=== PATIENT | female | born 1955 | race Caucasian/White ===

== ENCOUNTER 2022-03-20 16:23 | Emergency (ER) | payer MEDICARE, OTHER ==
[2022-03-20] MEDS ORDERED: Sodium Chloride 0.9% 1000 ML 1,000 ML IV STA ×2 (16:38→18:02)
[2022-03-20] MEDS ORDERED: Pepcid 20 MG VIAL IV ONE ×2 (16:38→16:41)
[2022-03-20] MEDS ORDERED: Sodium Chloride 0.9% 1000 ML 1,000 ML ONE ×3 (16:41→21:46)
--- NOTE | 2022-03-20 16:44 | ERPHSYRPT ---
- History of Present Illness Time Seen by Provider: 03/20/22 16:35 Historian: patient Exam Limitations: no limitations Patient Subjective Stated Complaint: Right upper abdominal pain Physician History: Patient's had intermittent right upper quadrant abdominal pain over the last 1 day intermittently, worse after eating. On her way over to the hospital, she had a bout of substernal chest pain/epigastric abdominal pain that resolved on its own. She states her bout of right upper quad abdominal pain lasted about 5 to 10 minutes after eating with radiation into her ribs. She has not had any imaging of her gallbladder or any testing of her gallbladder as she still has her gallbladder. Timing/Duration: yesterday, intermittent Activities at Onset: other (Eating) Quality: cramping, stabbing Abdominal Pain Onset Location: RUQ Pain Radiation: chest Severity of Pain-Max: severe Severity of Pain-Current: none Modifying Factors: Worsens With: eating Associated Symptoms: chest pain, No back, No diaphoresis, No diarrhea, No fever/chills, No fatigue, No headache, No nausea, No neck pain, No rash, No shortness of breath, No syncope, No vomiting, No weakness Previous symptoms: same symptoms as today, no recent treatment Allergies/Adverse Reactions: No Known Drug Allergies Allergy (Unverified 03/20/22 16:30) - Review of Systems Constitutional: No Fever, No Chills, No Fatigue, No Malaise Eyes: No Symptoms, No Eye Pain, No Eye Redness, No Other (Negative icterus) Ears, Nose, & Throat: No Symptoms, No Ear Pain, No Ear Discharge, No Nose Congestion, No Epistaxis, No Throat Pain Respiratory: No Cough, No Dyspnea Cardiac: Chest Pain, No Edema, No Syncope Abdominal/Gastrointestinal: Abdominal Pain, No Nausea, No Vomiting, No Diarrhea Genitourinary Symptoms: No Dysuria, No Hematuria, No Flank Pain Musculoskeletal: No Back Pain, No Neck Pain Skin: No Rash Neurological: No Dizziness, No Focal Weakness, No Sensory Changes Psychological: No Symptoms, No Alcohol Abuse, No Anxiety Endocrine: No Symptoms, No Polydipsia Hematologic/Lymphatic: No Easy Bleeding, No Easy Bruising All Other Systems: Reviewed and Negative - Past Medical History Neurological History: No Pertinent History Cardiac History: Hypertension Respiratory History: No Pertinent History Endocrine Medical History: Diabetes Type II Musculoskeletal History: Other Other Medical History: SX HX - TRIGGER FINGER RELEASE RIGHT, BILATERAL FOOT SURGERY FOR PLANTAR FASCITIS - Nursing Vital Signs Nursing Vital Signs: Initial Vital Signs Temperature 97.4 F 03/20/22 16:31 Pulse Rate 91 H 03/20/22 16:31 Respiratory Rate 19 03/20/22 16:31 Blood Pressure 161/102 03/20/22 16:31 O2 Sat by Pulse Oximetry 96 03/20/22 16:31 Pain Scale Pain Intensity 2 - Physical Exam General Appearance: no apparent distress, alert Eye Exam: PERRL/EOMI, eyes nml inspection, No scleral icterus, No pale conjunctivae Ears, Nose, Throat Exam: normal ENT inspection, pharynx normal, moist mucous membranes Neck Exam: normal inspection, non-tender, supple, full range of motion Respiratory Exam: normal breath sounds, lungs clear, No respiratory distress Cardiovascular Exam: regular rate/rhythm, normal heart sounds Gastrointestinal/Abdomen Exam: soft, normal bowel sounds, No tenderness, No distention, No mass, No guarding Back Exam: normal inspection, normal range of motion, No CVA tenderness, No vertebral tenderness Extremity Exam: normal inspection, normal range of motion, pelvis stable Neurologic Exam: alert, oriented x 3, cooperative, president & ceo II-XII nml as tested, normal mood/affect, sensation nml, No motor deficits Skin Exam: normal color, warm, dry, No rash, No petechiae, No jaundice SpO2 Interpretation: normal O2 Delivery: Room Air - Course Nursing assessment & vital signs reviewed: Yes EKG Interpreted by Me: RATE (78), Sinus Rhythm, NORMAL AXIS, NORMAL INTERVALS, NORMAL QRS, NORMAL ST-T, Other (Low voltage inprecordial leads) - Radiology Exams Chest X-ray Interpretation: Reviewed by me, Discussed w/ radiologist, No Pneumonia, No Pneumothorax, Nml Alignment, Nml Heart Size, No Infiltrates, Nml Mediastinum, Other (Right lower lobe atelectasis) - CT Exams Abdomen/Pelvis CT Interpretation: Discussed w/radiologist, Other (Compared to 05/13/2019, new distended gallbladder with wall thickening and enhancement favoring acalculus cholecystitis. Stable fatty liver and bilateral renal cysts are stable per radiology interpretation) Ordered Tests: Active Orders 24 hr Category Date Time Status EKG-ER Only STAT Care 03/20/22 16:38 Active IV Insertion STAT Care 03/20/22 16:38 Active NPO (ED) STAT Care 03/20/22 16:38 Active ABDOMEN AND PELVIS W CONTRAST [CT] Stat Exams 03/20/22 18:57 Taken CHEST 1 VIEW (PORTABLE) Stat Exams 03/20/22 16:38 Completed CBC W DIFF Stat Lab 03/20/22 16:35 Completed CMP Stat Lab 03/20/22 16:35 Completed LIPASE Stat Lab 03/20/22 16:35 Completed PROTIME WITH INR Stat Lab 03/20/22 16:35 Completed TROPONIN Q3H Lab 03/20/22 16:35 Completed TROPONIN Q3H Lab 03/20/22 19:30 Completed TROPONIN Q3H Lab 03/20/22 22:45 Ordered TROPONIN Q3H Lab 03/21/22 01:45 Ordered TROPONIN Q3H Lab 03/21/22 04:45 Ordered UA W/RFX CULTURE Stat Lab 03/20/22 16:49 Completed Medication Summary Generic Name Dose Route Start Last Admin Trade Name Freq PRN Reason Stop Dose Admin Sodium Chloride 1,000 mls @ 200 mls/hr 03/20/22 20:45 03/20/22 21:48 Sodium Chloride 0.9% 1000 Ml IV 04/19/22 20:44 200 mls/hr .Q5H JONATHAN Administration Discontinued Medications Generic Name Dose Route Start Last Admin Trade Name Freq PRN Reason Stop Dose Admin Famotidine 20 mg 03/20/22 16:38 03/20/22 16:42 Famotidine 20 Mg/1 Vial IV 03/20/22 16:39 20 mg STAT ONE Administration Famotidine Confirm 03/20/22 16:41 Famotidine 20 Mg/1 Vial Administered 03/20/22 16:42 Dose 20 mg IV .STK-MED ONE Hydromorphone HCl 1 mg 03/20/22 19:58 03/20/22 20:14 Hydromorphone 1 Mg/1ml Inj 1 Mg/Ml Syringe IV 03/20/22 19:59 1 mg STAT ONE Administration Hydromorphone HCl Confirm 03/20/22 20:10 Hydromorphone 1 Mg/1ml Inj 1 Mg/Ml Syringe Administered 03/20/22 20:11 Dose 1 mg .ROUTE .STK-MED ONE Sodium Chloride 1,000 mls @ 999 mls/hr 03/20/22 16:38 03/20/22 17:45 Sodium Chloride 0.9% 1000 Ml IV 03/20/22 17:38 Infused .Q1H1M STA Infusion Sodium Chloride Confirm 03/20/22 16:41 Sodium Chloride 0.9% 1000 Ml Administered 03/20/22 16:42 Dose 1,000 mls @ ud .ROUTE .STK-MED ONE Sodium Chloride 1,000 mls @ 999 mls/hr 03/20/22 18:02 03/20/22 19:19 Sodium Chloride 0.9% 1000 Ml IV 03/20/22 19:02 Infused .Q1H1M STA Infusion Sodium Chloride Confirm 03/20/22 18:15 Sodium Chloride 0.9% 1000 Ml Administered 03/20/22 18:16 Dose 1,000 mls @ ud .ROUTE .STK-MED ONE Piperacillin Sod/Tazobactam 100 mls @ 200 mls/hr 03/20/22 20:33 03/20/22 20:36 Sod 3.375 gm/ Sodium Chloride IV 03/20/22 21:02 200 mls/hr STAT ONE Administration Sodium Chloride Confirm 03/20/22 20:35 Sodium Chloride 100ml Mini-Bag Plus Administered 03/20/22 20:36 Dose 100 mls @ ud IV .STK-MED ONE Piperacillin Sod/Tazobactam Sod Confirm 03/20/22 20:35 Piperacillin/Tazobactam Sodium 3.375 Gm Vial Administered 03/20/22 20:36 Dose 3.375 gm IV .STK-MED ONE Lab/Rad Data: Laboratory Result Diagrams 03/20/22 16:35 03/20/22 16:35 Laboratory Results 03/20/22 03/20/22 03/20/22 Range/Units 19:30 18:30 16:49 WBC (4.0-10.5) x10^3/uL RBC (4.1-5.4) x10^6/uL Hgb (12.0-16.0) g/dL Hct (35-47) % MCV (78-100) fL MCH (26-32) pg MCHC (32-36) g/dL RDW (11.5-14.0) % Plt Count (150-450) x10^3/uL MPV (7.5-11.0) fL Gran % (36.0-66.0) % Immature Gran % (Auto) (0.00-0.4) % Nucleat RBC Rel Count (0.00-0.1) % Eos # (Auto) (0-0.5) x10^3/uL Immature Gran # (Auto) (0.00-0.03) x10^3u/L Absolute Lymphs (auto) (1.0-4.6) x10^3/uL Absolute Monos (auto) (0.0-1.3) x10^3/uL Absolute Nucleated RBC (0.00-0.01) x10^3u/L Lymphocytes % (24.0-44.0) % Monocytes % (0.0-12.0) % Eosinophils % (0.00-5.0) % Basophils % (0.0-0.4) % Absolute Granulocytes (1.4-6.9) x10^3/uL Basophils # (0-0.4) x10^3/uL PT (9.4-12.5) SECONDS INR (0.8-3.0) Sodium (137-145) mmol/L Potassium (3.5-5.1) mmol/L Chloride (98-107) mmol/L Carbon Dioxide (22-30) mmol/L Anion Gap (5-15) MEQ/L BUN (7-17) mg/dL Creatinine (0.52-1.04) mg/dL Estimated GFR ML/MIN Glucose (74-106) mg/dL Calcium (8.4-10.2) mg/dL Total Bilirubin (0.2-1.3) mg/dL AST (14-36) U/L ALT (0-35) U/L Alkaline Phosphatase (38-126) U/L Troponin I < 0.012 (0.000-0.034) ng/mL Serum Total Protein (6.3-8.2) g/dL Albumin (3.5-5.0) g/dL Lipase (23-300) U/L Urinalys Dipstick Clnc MAIN LAB Urine Color YELLOW (YELLOW) Urine Appearance CLEAR (CLEAR) Urine pH 8.5 (5-6) Ur Specific [place] 1.020 (1.005-1.025) POC Urine Protein Conf 30 (Negative) Urine Ketones NEGATIVE (NEGATIVE) Urine Nitrite NEGATIVE (NEGATIVE) Urine Bilirubin NEGATIVE (NEGATIVE) Urine Urobilinogen 1 (0-1) mg/dL Urine Leukocytes NEGATIVE (NEGATIVE) Urine WBC (Auto) NONE (0-5) /HPF Urine RBC (Auto) 3-5 (0-2) /HPF U Epithel Cells (Auto) NONE (FEW) /HPF Urine Bacteria (Auto) NONE (NEGATIVE) /HPF Urine RBC NEGATIVE (0-5) Kvng/ul Ur Culture Indicated? NO Urine Glucose NEGATIVE (NEGATIVE) mg/dL Influenza Type A Ag NEGATIVE (NEGATIVE) Influenza Type B Ag NEGATIVE (NEGATIVE) RSV (PCR) NEGATIVE (Negative) SARS-CoV-2 (PCR) NEGATIVE (NEGATIVE) 03/20/22 03/20/22 03/20/22 Range/Units 16:35 16:35 16:35 WBC (4.0-10.5) x10^3/uL RBC (4.1-5.4) x10^6/uL Hgb (12.0-16.0) g/dL Hct (35-47) % MCV (78-100) fL MCH (26-32) pg MCHC (32-36) g/dL RDW (11.5-14.0) % Plt Count (150-450) x10^3/uL MPV (7.5-11.0) fL Gran % (36.0-66.0) % Immature Gran % (Auto) (0.00-0.4) % Nucleat RBC Rel Count (0.00-0.1) % Eos # (Auto) (0-0.5) x10^3/uL Immature Gran # (Auto) (0.00-0.03) x10^3u/L Absolute Lymphs (auto) (1.0-4.6) x10^3/uL Absolute Monos (auto) (0.0-1.3) x10^3/uL Absolute Nucleated RBC (0.00-0.01) x10^3u/L Lymphocytes % (24.0-44.0) % Monocytes % (0.0-12.0) % Eosinophils % (0.00-5.0) % Basophils % (0.0-0.4) % Absolute Granulocytes (1.4-6.9) x10^3/uL Basophils # (0-0.4) x10^3/uL PT 10.7 (9.4-12.5) SECONDS INR 1.01 (0.8-3.0) Sodium 138 (137-145) mmol/L Potassium 4.1 (3.5-5.1) mmol/L Chloride 105 (98-107) mmol/L Carbon Dioxide 24 (22-30) mmol/L Anion Gap 13.3 (5-15) MEQ/L BUN 19 H (7-17) mg/dL Creatinine 0.75 (0.52-1.04) mg/dL Estimated GFR > 60.0 ML/MIN Glucose 182 H (74-106) mg/dL Calcium 9.6 (8.4-10.2) mg/dL Total Bilirubin 1.10 (0.2-1.3) mg/dL AST 134 H (14-36) U/L ALT 48 H (0-35) U/L Alkaline Phosphatase 139 H (38-126) U/L Troponin I < 0.012 (0.000-0.034) ng/mL Serum Total Protein 7.3 (6.3-8.2) g/dL Albumin 4.0 (3.5-5.0) g/dL Lipase 87550 H (23-300) U/L Urinalys Dipstick Clnc Urine Color (YELLOW) Urine Appearance (CLEAR) Urine pH (5-6) Ur Specific [place] (1.005-1.025) POC Urine Protein Conf (Negative) Urine Ketones (NEGATIVE) Urine Nitrite (NEGATIVE) Urine Bilirubin (NEGATIVE) Urine Urobilinogen (0-1) mg/dL Urine Leukocytes (NEGATIVE) Urine WBC (Auto) (0-5) /HPF Urine RBC (Auto) (0-2) /HPF U Epithel Cells (Auto) (FEW) /HPF Urine Bacteria (Auto) (NEGATIVE) /HPF Urine RBC (0-5) Kvng/ul Ur Culture Indicated? Urine Glucose (NEGATIVE) mg/dL Influenza Type A Ag (NEGATIVE) Influenza Type B Ag (NEGATIVE) RSV (PCR) (Negative) SARS-CoV-2 (PCR) (NEGATIVE) 03/20/22 Range/Units 16:35 WBC 9.5 (4.0-10.5) x10^3/uL RBC 5.08 (4.1-5.4) x10^6/uL Hgb 15.5 (12.0-16.0) g/dL Hct 48.0 H (35-47) % MCV 94.5 (78-100) fL MCH 30.5 (26-32) pg MCHC 32.3 (32-36) g/dL RDW 12.8 (11.5-14.0) % Plt Count 221 (150-450) x10^3/uL MPV 9.4 (7.5-11.0) fL Gran % 50.9 (36.0-66.0) % Immature Gran % (Auto) 0.3 (0.00-0.4) % Nucleat RBC Rel Count 0.0 (0.00-0.1) % Eos # (Auto) 0.23 (0-0.5) x10^3/uL Immature Gran # (Auto) 0.03 (0.00-0.03) x10^3u/L Absolute Lymphs (auto) 3.50 (1.0-4.6) x10^3/uL Absolute Monos (auto) 0.83 (0.0-1.3) x10^3/uL Absolute Nucleated RBC 0.00 (0.00-0.01) x10^3u/L Lymphocytes % 37.0 (24.0-44.0) % Monocytes % 8.8 (0.0-12.0) % Eosinophils % 2.4 (0.00-5.0) % Basophils % 0.6 (0.0-0.4) % Absolute Granulocytes 4.82 (1.4-6.9) x10^3/uL Basophils # 0.06 (0-0.4) x10^3/uL PT (9.4-12.5) SECONDS INR (0.8-3.0) Sodium (137-145) mmol/L Potassium (3.5-5.1) mmol/L Chloride (98-107) mmol/L Carbon Dioxide (22-30) mmol/L Anion Gap (5-15) MEQ/L BUN (7-17) mg/dL Creatinine (0.52-1.04) mg/dL Estimated GFR ML/MIN Glucose (74-106) mg/dL Calcium (8.4-10.2) mg/dL Total Bilirubin (0.2-1.3) mg/dL AST (14-36) U/L ALT (0-35) U/L Alkaline Phosphatase (38-126) U/L Troponin I (0.000-0.034) ng/mL Serum Total Protein (6.3-8.2) g/dL Albumin (3.5-5.0) g/dL Lipase (23-300) U/L Urinalys Dipstick Clnc Urine Color (YELLOW) Urine Appearance (CLEAR) Urine pH (5-6) Ur Specific [place] (1.005-1.025) POC Urine Protein Conf (Negative) Urine Ketones (NEGATIVE) Urine Nitrite (NEGATIVE) Urine Bilirubin (NEGATIVE) Urine Urobilinogen (0-1) mg/dL Urine Leukocytes (NEGATIVE) Urine WBC (Auto) (0-5) /HPF Urine RBC (Auto) (0-2) /HPF U Epithel Cells (Auto) (FEW) /HPF Urine Bacteria (Auto) (NEGATIVE) /HPF Urine RBC (0-5) Kvng/ul Ur Culture Indicated? Urine Glucose (NEGATIVE) mg/dL Influenza Type A Ag (NEGATIVE) Influenza Type B Ag (NEGATIVE) RSV (PCR) (Negative) SARS-CoV-2 (PCR) (NEGATIVE) - Progress Progress: improved Progress Note: 03/20/22 20:41 Patient's pain is well controlled and she has no issues with chest pain, dyspnea, back pain or any location of abdominal pain at this time. Reviewed with her and her family the results of CT scan labs and that she will need tr melvi and at this time [facility] is on diversion and so [facility] will be the most likely transfer location. Patient will require transfer as I discussed the patient earlier with the hospitalist at [facility] and due to limited resources here as well as no gastroenterology coverage, the hospitalist recommended transfer the patient to a larger facility in [place], [place]. Patient was started on Zosyn for intra-abdominal coverage for the acalculous cholecystitis seen and will have Dilaudid and Zofran ordered for as needed medicine as well as maintenance fluids through the IV since he received 2 L bolus and has maintained hemodynamically in good condition during her time here in the emergency department. 03/20/22 22:26 Patient has maintained being hemodynamically good condition and pain is well controlled and will be transferred to [facility] in [place], [place] Discussed with Dr.: Rojas (At 18:40 on 03/20/2022, discussed the patient with Dr. Clifton, hospitalist for the patient who states that patient should be transferred to facility with gastroenterology and higher level of coverage with the elevated lipase), Other (@21:25 on 03/20/2022, patient was discussed with Dr Jang, surgeon at [facility] in [place], [place] and reviewed the patient's lab and CT scan results. Dr Jang states patient is to be admitted to the hospitalist since no visible gallstones; @21:31, discussed with Dr Ji, hospitalist) Will see patient in: hospital (full admit) (patient was accepted by gilberto Carlisle ospitalist, at [facility] in [place], [place] at 22:25 on 03/20/2022) Counseled pt/family regarding: lab results, diagnosis, need for follow-up, rad results - Departure Departure Disposition: Transfer ([facility] in [place], [place]) Clinical Impression: Acute cholecystitis, Acute pancreatitis without infection or necrosis, Fatty liver, Bilateral renal cysts, Essential hypertension Condition: Fair Critical Care Time: No Referrals: TITO BREWSTER, C[employer] ASSEMBLER [Primary Care Provider] - Follow up/PCP as directed
[2022-03-20 17:04] LABS: Absolute Neutrophil Ct (ANC) 4.82 x10^3/uL (1.4-6.9); Basophil (Absolute #) 0.06 x10^3/uL (0-0.4); Eosinophil % 2.4 % (0.00-5.0); Eosinophil (Absolute #) 0.23 x10^3/uL (0-0.5); Hemoglobin 15.5 g/dL (12.0-16.0); Mean Cell Volume 94.5 fL (78-100); Mean Corpuscular Hemoglobin 30.5 pg (26-32); Mean Corpuscular Hgb Concent. 32.3 g/dL (32-36); Mean Platelet Volume 9.4 fL (7.5-11.0); Monocyte (Absolute #) 0.83 x10^3/uL (0.0-1.3); Monocytes % 8.8 % (0.0-12.0); Neutrophil % 50.9 % (36.0-66.0); Platelet Count 221 x10^3/uL (150-450); Red Blood Count 5.08 x10^6/uL (4.1-5.4); Red Cell Distribution Width 12.8 % (11.5-14.0); White Blood Count 9.5 x10^3/uL (4.0-10.5)
--- NOTE | 2022-03-20 17:08 | XRAY ---
Indication: Chest pain. Comparison: September 24, 2016. Portable chest demonstrates new minimal right infrahilar discoid atelectasis/scarring. Remaining lungs clear again with incidental tiny calcified granulomas. Heart not enlarged. Bony thorax intact again with osteopenia and degenerative changes. Impression: Nonacute chest with chronic features.
[2022-03-20 17:12] LABS: ALKALINE PHOSPHATASE 139 U/L (38-126); ANION GAP 13.3 MEQ/L (5-15); BLOOD UREA NITROGEN 19 mg/dL (7-17); CHLORIDE 105 mmol/L (98-107); Calcium 9.6 mg/dL (8.4-10.2); Carbon Dioxide 24 mmol/L (22-30); Creatinine 1 0.75 mg/dL (0.52-1.04); EST GLOMERULAR FILTRATION RATE > 60.0 ML/MIN; Glucose 182 mg/dL (74-106); Potassium 4.1 mmol/L (3.5-5.1); SGOT/AST 134 U/L (14-36); SGPT/ALT 48 U/L (0-35); SODIUM 138 mmol/L (137-145); Total Protein 7.3 g/dL (6.3-8.2)
[2022-03-20 17:14] LABS: INR 1.01 (0.8-3.0); PROTIME 10.7 SECONDS (9.4-12.5)
[2022-03-20 17:29] LABS: Appearance CLEAR (CLEAR); Bilirubin NEGATIVE (NEGATIVE); Dipstick done @ ? MAIN LAB; Glucose NEGATIVE (NEGATIVE); Ketones NEGATIVE (NEGATIVE); Nitrite NEGATIVE (NEGATIVE); Ph 8.5 (5-6); Protein,Urine Dip 30 (Negative); RBC NEGATIVE Ery/ul (0-5); Urobilinogen 1 mg/dL (0-1)
[2022-03-20 17:30] LABS: Urine Cultured Indicated? NO
[2022-03-20 17:56] LABS: LIPASE 19177 U/L (23-300)
[2022-03-20 19:38] LABS: INFLUENZA A NEGATIVE (NEGATIVE); INFLUENZA B NEGATIVE (NEGATIVE); RESPIRATORY SYNCTIAL VIRUS NEGATIVE (Negative); SARS-CoV-2 Xpert Express NEGATIVE (NEGATIVE)
[2022-03-20] MEDS ORDERED: Hydromorphone 1 mg/ml Injection IV ONE (19:58)
[2022-03-20] MEDS ORDERED: Hydromorphone 1 mg/ml Injection ONE (20:10)
[2022-03-20] MEDS ORDERED: PIPERACILLIN/TAZOBACTAM 3.375 GM in Sodium Chloride 100ML MINI-BAG PLUS 100 ML IV ONE (20:33)
[2022-03-20] MEDS ORDERED: PIPERACILLIN/TAZOBACTAM IV ONE (20:35)
[2022-03-20] MEDS ORDERED: Sodium Chloride 100ML MINI-BAG PLUS 100 ML IV ONE (20:35)
[2022-03-20] MEDS ORDERED: Sodium Chloride 0.9% 1000 ML 1,000 ML IV SCH (20:45)
[2022-03-21] MEDS ORDERED: Hydromorphone 1 mg/ml Injection IV PRN (00:47)
[2022-03-21] MEDS ORDERED: Zofran 4 MG/2 ML VIAL IV PRN (00:47)
[2022-03-21] MEDS ORDERED: PIPERACILLIN/TAZOBACTAM 3.375 GM in Sodium Chloride 100ML MINI-BAG PLUS 100 ML IV SCH (01:00)
[2022-03-21] MEDS ORDERED: Zofran 4 MG/2 ML VIAL ONE (01:13)
[2022-03-21] MEDS ORDERED: Hydromorphone 1 mg/ml Injection ONE (01:14)
[2022-03-21] MEDS ORDERED: Pepcid 20 MG VIAL IV ONE (01:15)
[2022-03-21] MEDS ORDERED: PIPERACILLIN/TAZOBACTAM IV ONE (01:15)
[2022-03-21] MEDS ORDERED: Sodium Chloride 100ML MINI-BAG PLUS 100 ML IV ONE (01:16)
[2022-03-21 02:05] VITALS: BP 125/75; PULSE 103; O2SAT 99
--- NOTE | 2022-03-21 08:50 | XRAY ---
Indication: Right upper quadrant/epigastric pain 2 days. Nausea and vomiting. Multiple contiguous assessment images obtained through the abdomen and pelvis using 80 cc Isovue 370 contrast. Comparison: CT abdomen May 13, 2019. Lung bases again demonstrates tiny calcified granulomas. No infiltrate or effusion. Heart not enlarged. Noncontrasted stomach and bowel loops nonobstructed. Appendix not identified. Minimal sigmoid diverticulosis without diverticulitis. Gallbladder is now abnormally distended with mild wall thickening/enhancement and pericholecystic fluid favoring acalculus cholecystitis. No abnormal biliary distention. Again mild fatty hepatomegaly measuring 22.3 cm and bilateral renal cysts. Remaining liver, gallbladder, pancreas, spleen, adrenal glands, kidneys, ureters, bladder, and uterus appear unremarkable. Mild scattered aortoiliac calcifications. No AAA or pathologic retroperitoneal lymphadenopathy. Osseous structures intact again with mild degenerative changes throughout the spine. Impression: 1. New finding for abnormal distended gallbladder with wall thickening/enhancement and pericholecystic fluid favoring acalculus cholecystitis. 2. Chronic findings including fatty hepatomegaly, bilateral renal cysts, chronic bony findings, and old granulomatous disease.
[2022-03-21] MEDS ORDERED: Pepcid 20 MG VIAL IV SCH (10:00)
== END 2022-03-21 02:06 | disposition short-term general hospital (02) ==
LOC: ED 16:23
DX: K81.0 Acute cholecystitis (principal); K85.90 Acute pancreatitis without necrosis or infection, unspecified; K76.0 Fatty (change of) liver, not elsewhere classified; Q61.02 Congenital multiple renal cysts; I10 Essential (primary) hypertension; R10.11 Right upper quadrant pain; R07.9 Chest pain, unspecified; E11.9 Type 2 diabetes mellitus without complications
CPT/HCPCS: 0241U; 36000; 36415; 71045; 74177; 80053; 81015; 83690; 84484; 85025; 85610; 93005; 96360; 96365; 96374; 96375; 96376; 99285; J1170; J2405

== ENCOUNTER 2022-04-22 08:05 | Day surgery (SDC) | payer MEDICARE, OTHER ==
[~2022-04-22 08:05] MED LIST: Lactated Ringers 1,000 ML IV SCH; MEFOXIN 2 GM PREMIX** 2 GM/50 ML ML IV SCH
[2022-04-22] MEDS ORDERED: Lactated Ringers 1,000 ML IV ONE ×2 (08:23→10:31)
[2022-04-22] MEDS ORDERED: MEFOXIN 2 GM PREMIX** 2 GM/50 ML ML IV ONE (08:29)
[2022-04-22] MEDS ORDERED: Zemuron 100 MG/10 ML ONE (10:12)
[2022-04-22] MEDS ORDERED: Versed 2 MG/2 ML Injection ONE (10:12)
[2022-04-22] MEDS ORDERED: DIPRIVAN 200 MG/20 ML IV ONE (10:12)
[2022-04-22] MEDS ORDERED: SUBLIMAZE 250 MCG/5 ML ONE (10:12)
[2022-04-22] MEDS ORDERED: Sensorcaine 0.25% 10 ML ONE (10:31)
--- NOTE | 2022-04-22 11:13 | HP ---
PROCEDURE DATE: 04/22/2022 HISTORY OF PRESENT ILLNESS: The patient is a 66 y/o who had an ERCP at [facility]. Had some sludge removed per [facility] Gastrointestinal with ERCP. Now, is in need of cholecystectomy. In no current pain. She had some nausea and vomiting at the time of her initial issues. PAST MEDICAL HISTORY: Diabetes. CURRENT MEDICATIONS: Allergy relief. She has been on allopurinol, aripiprazole, duloxetine, cetirizine, Farxiga, gabapentin, hydrochlorothiazide, loratadine, metoprolol, omeprazole, Vascepa. ALLERGIES: NKDA. PAST SURGICAL HISTORY: Has had trigger finger hand surgery and bilateral foot surgery for plantar fasciitis. FAMILY HISTORY: Hypertension, diabetes. SOCIAL HISTORY: No smoking or alcohol abuse. REVIEW OF SYSTEMS: 14 systems reviewed. No chest pain or palpitations. Other systems negative or noncontributory other than above and per admission assessment. PHYSICAL EXAMINATION: GENERAL: No acute distress. HEENT: Sclerae nonicteric. NECK: No JVD. CHEST: Equal excursion. Nonlabored breathing. CVS: Regular rate and rhythm. ABDOMEN: Soft. No peritoneal signs. EXTREMITIES: No significant edema. NEURO: Alert and oriented, moving extremities symmetrically. PSYCH: Appropriate mood and affect. IMPRESSION: 1. HISTORY OF ACUTE EXACERBATION OF CHRONIC CHOLECYSTITIS, SOME GALLBLADDER SLUDGE OR CHOLELITHIASIS WITH ERCP REMOVAL OF COMMON BILE DUCT SLUDGE OR STONES. THE PATIENT IN NEED OF CHOLECYSTECTOMY. FEEL SHE IS A CANDIDATE. She was explained the risks and benefits explained in detail including, but not limited to, bleeding; infection; risk of trocar injury or hernia; risk of bowel, bladder, or blood vessel issues or injury; risk of bile leak, bile duct injury, or retained stone or sludge possibly requiring further procedures either open or endoscopic retrograde cholangiopancreatography; general risk of anesthesia, deep vein thrombosis, pulmonary embolism, or pneumonia; perioperative risks of aches, pains, bloating, constipation and/or loose stools possibly chronic in nature; possibility of no improvement in her symptoms. She understands and agrees to the planned procedure. Will proceed with laparoscopic cholecystectomy, possible open as an outpatient.
[2022-04-22] MEDS ORDERED: PHENYLEPHRINE HCL ONE (11:20)
[2022-04-22] MEDS ORDERED: BRIDION 200MG/2ML IV ONE (12:07)
[2022-04-22] MEDS ORDERED: NORCO 5/325 MG PO PRN (13:28)
[2022-04-22 14:01] VITALS: O2SAT 93
[2022-04-22 14:19] VITALS: BP 136/84; PULSE 76
--- NOTE | 2022-04-23 15:24 | OP ---
SURGERY DATE: 04/22/2022 SURGERY TIME: 1105 PREOPERATIVE DIAGNOSIS: 1. ACUTE EXACERBATIONOF CHRONIC CHOLECYSTITIS, SYMPTOMATIC CHOLELITHIASIS. PRIOR HISTORY OF CHOLEDOCHOLITHIASIS STATUS POST ERCP REMOVAL. POSTOPERATIVE DIAGNOSIS: 1. ACUTE EXACERBATIONOF CHRONIC CHOLECYSTITIS, SYMPTOMATIC CHOLELITHIASIS. PRIOR HISTORY OF CHOLEDOCHOLITHIASIS STATUS POST ERCP REMOVAL. PROCEDURE: 1. Laparoscopic cholecystectomy. SURGEON: Dr. Prakash Barnhart. ANESTHESIA: General. ESTIMATED BLOOD LOSS: Minimal. INDICATIONS: As noted above. Risks and benefits explained in detail, but not limited to. Consent obtained. DESCRIPTION OF PROCEDURE AND FINDINGS: The patient was taken to the OR. General anesthesia was induced. The abdomen was prepped in the usual sterile fashion. After official time-out, no disagreement in planned procedure. Transverse incision made at the supraumbilical area. Fascia grasped and pulled upward. Veress needle inserted. Tested with saline. Pneumoperitoneum accomplished insufflating from an opening pressure of 0-15. A 5 mm bladeless port and camera inserted without difficulty followed by 11 mm epigastric port and two 5 mm right upper quadrant ports under direct vision with the camera. No evidence of any intraabdominal injury secondary to trocar insertion. The gallbladder was grasped and retracted up over the edge of the liver. The chronic fibrofatty reaction dissected from posterolateral to anterior fashion. Slowly, carefully, the cystic duct/infundibular junction was slowly, carefully well skeletonized so the critical view was obtained anteriorly and posteriorly. Once this was accomplished, the cystic duct was clipped X 3 and divided in the usual fashion. The gallbladder as quite vascular. After isolating the main cystic artery, isolated, clipped X 3, and divided directly on the gallbladder wall. There were 3 or 4 addition oozing side branches were isolated and clipped as necessary directly on the gallbladder wall. The gallbladder was slowly, carefully dissected free from its dense attachments to the liver bed staying directly on the gallbladder wall. One of graspers had a small pinhole in the gallbladder. There was no evidence of any stone spillage, just a small amount of bile. Just prior to releasing the final attachments to the anterior edge of the liver, the liver bed reinspected. Clips noted to be in placed in the cystic duct/cystic artery stumps. No signs of any active bleeding or bile leakage. Fonda there was no benefit from drain placement. The gallbladder was released from its final attachments to the anterior edge of the liver. Placed in the provided sack by the hospital, pulled up in the epigastric wound, decompressed of bile, and the gallbladder pulled free and passed off. A copious amount of irrigation accomplished lateral to the liver and subhepatic space, irrigating until clear. Liver bed reinspected. Clips noted to be in place in the cystic duct/cystic artery stumps. No signs of any active bleeding or bile leakage. Fonda there was no benefit of drain placement. The fascial defect of 10 and 11 sites were closed with puncture closure device and #1 Vicryl. The pneumoperitoneum was decompressed at this point. Skin incision closed with 4-0 Vicryl after irrigating the wounds out. Skin incision closed with 4-0 Vicryl. Steri-strips and sterile dressing applied. 0.25% Marcaine local had been injected along each skin incision and fascial defect. The patient tolerated the procedure well. There were no immediate complications. There was no family available to discuss findings right when we finished the case, but while I was doing some endoscopy later, the family eventually was placed in the room. I did discuss the findings with the family later when they were available.
== END 2022-04-22 14:20 | disposition home or self-care (01) ==
LOC: SDC 08:05
PROVIDERS: ATTEND Surgery
DX: K80.00 Calculus of gallbladder with acute cholecystitis without obstruction (principal); E11.9 Type 2 diabetes mellitus without complications; Z48.815 Encounter for surgical aftercare following surgery on the digestive system
CPT/HCPCS: 82947; J0694; J2250; J2370; J2704; J3010; A9270-GY

== ENCOUNTER 2024-12-02 14:22 | Observation (INO) | payer MEDICARE, OTHER ==
--- NOTE | 2024-12-02 14:48 | ERPHSYRPT ---
- History of Present Illness Historian: patient, family Exam Limitations: no limitations Hx Influenza Vaccination/Date Given: No Hx Pneumococcal Vaccination/Date Given: No <ERIKA EDWARDS - Last Filed: 12/02/24 23:34> <MORENA FOX - Last Filed: 12/03/24 14:41> - History of Present Illness Time Seen by Provider: 12/02/24 14:31 Physician History: 69-year-old female with history of hypertension, diabetes mellitus, cholecystectomy presented in the ER with 3 days history of upper abdominal pain with nausea vomiting, nonprojectile, nonbilious without constipation or diarrhea . Patient reports 9/10 intensity sharp pain in the upper abdomen with no significant aggravating or relieving factors. No fever or chills reported. She has been taking [id number] medications with no significant relief. Patient looks jaundiced and has no history of liver disease/alcohol use. (ERIKA EDWARDS) Allergies/Adverse Reactions: No Known Drug Allergies Allergy (Verified 12/02/24 14:31) Home Medications: ARIPiprazole [Aripiprazole] 2 mg PO DAILY 04/11/22 [History] Cetirizine HCl 10 mg PO DAILY 04/11/22 [History] Dapagliflozin Propanediol [Farxiga] 10 mg PO DAILY 04/11/22 [History] Duloxetine HCl 60 mg PO DAILY 04/11/22 [History] Gabapentin 100 mg PO TID 04/11/22 [History] Loratadine 10 mg PO DAILY 04/11/22 [History] Metoprolol Tartrate 50 mg [Lopressor 50 MG] 50 mg PO DAILY 04/11/22 [History] Omeprazole 40 mg PO DAILY 04/11/22 [History] allopurinoL [Allopurinol] 1 tab PO BID 04/11/22 [History] hydroCHLOROthiazide [Hydrochlorothiazide] 25 mg PO DAILY 04/11/22 [History] icosapent ethyL [Vascepa] 1 gm PO BID 04/11/22 [History] - Review of Systems Constitutional: Fatigue Eyes: No Symptoms Ears, Nose, & Throat: No Symptoms Respiratory: No Symptoms Cardiac: No Symptoms Abdominal/Gastrointestinal: Abdominal Pain, Nausea, Vomiting Genitourinary Symptoms: Hematuria Musculoskeletal: Arthralgias Skin: No Symptoms Neurological: No Symptoms Hematologic/Lymphatic: No Symptoms Immunological/Allergic: No Symptoms <MOISES EDWARDSR - Last Filed: 12/02/24 23:34> - Past Medical History Pertinent Past Medical History: Yes Neurological History: No Pertinent History ENT History: No Pertinent History Cardiac History: Hypertension Respiratory History: No Pertinent History Endocrine Medical History: Diabetes Type II Musculoskeletal History: Other GI Medical History: GERD History: No Pertinent History Psycho-Social History: No Pertinent History Female Reproductive Disorders: No Pertinent History Other Medical History: SX HX - TRIGGER FINGER RELEASE RIGHT, BILATERAL FOOT SURGERY FOR PLANTAR FASCITIS - Past Surgical History Past Surgical History: Yes Neuro Surgical History: No Pertinent History Cardiac: No Pertinent History Respiratory: No Pertinent History Gastrointestinal: No Pertinent History Genitourinary: No Pertinent History Musculoskeletal: Orthopedic Surgery Female Surgical History: No Pertinent History Other Surgical History: Right shoulder surgery-3 years ago. plantar fascititis surgery. trigger finger release - Social History Smoking Status: Never smoker Exposure to second hand smoke: No Drug Use: none Patient Lives Alone: No <MOISES EDWARDSR - Last Filed: 12/02/24 23:34> - Physical Exam General Appearance: no apparent distress Eye Exam: PERRL/EOMI, scleral icterus Ears, Nose, Throat Exam: normal ENT inspection Neck Exam: normal inspection, non-tender, supple, full range of motion Respiratory Exam: normal breath sounds, lungs clear Cardiovascular Exam: regular rate/rhythm, normal heart sounds Gastrointestinal/Abdomen Exam: soft, normal bowel sounds, tenderness (Epigastric/periumbilical area), guarding (Mild) Back Exam: normal inspection Extremity Exam: normal inspection, normal range of motion Neurologic Exam: alert, oriented x 3, cooperative Skin Exam: normal color SpO2 Interpretation: normal SpO2: 97 O2 Delivery: Room Air <MOISES EDWARDSR - Last Filed: 12/02/24 23:34> - Nursing Vital Signs Nursing Vital Signs: Initial Vital Signs Pulse Rate 93 H 12/02/24 14:32 Respiratory Rate 27 H 12/02/24 14:32 Blood Pressure 144/86 12/02/24 14:32 O2 Sat by Pulse Oximetry 97 12/02/24 14:32 Pain Scale Pain Intensity 2 Ordered Tests: Active Orders 24 hr Category Date Time Status IV Insertion STAT Care 12/02/24 14:44 Active NPO (ED) STAT Care 12/02/24 14:44 Active ABDOMEN AND PELVIS W CONTRAST [CT] Stat Exams 12/02/24 14:45 Completed CBC W DIFF Stat Lab 12/02/24 14:30 Completed CBC W DIFF Stat Lab 12/03/24 12:05 Completed CMP Stat Lab 12/02/24 14:30 Completed CMP Stat Lab 12/03/24 12:05 Completed LIPASE Stat Lab 12/02/24 14:30 Completed LIPASE Stat Lab 12/03/24 12:05 Completed Lactic Acid Stat Lab 12/02/24 15:00 Completed Lactic Acid Stat Lab 12/02/24 17:07 Completed Lactic Acid Stat Lab 12/03/24 14:12 Completed PROTIME WITH INR Stat Lab 12/02/24 14:30 Completed TROPONIN Q4H Lab 12/02/24 14:30 Completed UA W/RFX UR CULTURE Stat Lab 12/02/24 17:36 Completed Medication Summary Generic Name Dose Route Start Last Admin Trade Name Freq PRN Reason Stop Dose Admin Sodium Chloride 1,000 mls @ 50 mls/hr 12/03/24 11:30 12/03/24 12:31 Sodium Chloride 0.9% 1000 Ml IV 01/02/25 11:29 50 mls/hr .Q20H JONATHAN Administration Discontinued Medications Generic Name Dose Route Start Last Admin Trade Name Freq PRN Reason Stop Dose Admin Sodium Chloride 1,000 mls @ 999 mls/hr 12/02/24 14:44 12/02/24 15:57 Sodium Chloride 0.9% 1000 Ml IV 12/02/24 15:44 Infused .Q1H1M STA Infusion Sodium Chloride Confirm 12/02/24 14:50 Sodium Chloride 0.9% 1000 Ml Administered 12/02/24 14:51 Dose 1,000 mls @ ud .ROUTE .STK-MED ONE Morphine Sulfate 4 mg 12/02/24 14:44 12/02/24 14:55 Morphine Sulfate 4 Mg/Ml Injection IV 12/02/24 14:45 4 mg STAT ONE Administration Morphine Sulfate Confirm 12/02/24 14:50 Morphine Sulfate 4 Mg/Ml Injection Administered 12/02/24 14:51 Dose 4 mg .ROUTE .STK-MED ONE Morphine Sulfate 4 mg 12/02/24 22:48 12/02/24 23:04 Morphine Sulfate 4 Mg/Ml Injection IV 12/02/24 22:49 4 mg STAT ONE Administration Morphine Sulfate Confirm 12/02/24 23:03 Morphine Sulfate 4 Mg/Ml Injection Administered 12/02/24 23:04 Dose 4 mg .ROUTE .STK-MED ONE Morphine Sulfate 4 mg 12/03/24 08:14 12/03/24 08:37 Morphine Sulfate 4 Mg/Ml Injection IV 12/03/24 08:15 4 mg STAT ONE Administration Morphine Sulfate Confirm 12/03/24 08:33 Morphine Sulfate 4 Mg/Ml Injection Administered 12/03/24 08:34 Dose 4 mg .ROUTE .STK-MED ONE Ondansetron HCl 4 mg 12/02/24 14:44 12/02/24 14:51 Ondansetron Hcl 4 Mg/2 Ml Vial IV 12/02/24 14:45 4 mg STAT ONE Administration Ondansetron HCl Confirm 12/02/24 14:50 Ondansetron Hcl 4 Mg/2 Ml Vial Administered 12/02/24 14:51 Dose 4 mg .ROUTE .STK-MED ONE Ondansetron HCl 4 mg 12/03/24 08:14 12/03/24 08:37 Ondansetron Hcl 4 Mg/2 Ml Vial IV 12/03/24 08:15 4 mg STAT ONE Administration Ondansetron HCl Confirm 12/03/24 08:33 Ondansetron Hcl 4 Mg/2 Ml Vial Administered 12/03/24 08:34 Dose 4 mg .ROUTE .STK-MED ONE Pantoprazole Sodium 40 mg 12/02/24 14:44 12/02/24 14:53 Pantoprazole 40 Mg Vial IV 12/02/24 14:45 40 mg STAT ONE Administration Pantoprazole Sodium Confirm 12/02/24 14:50 Pantoprazole 40 Mg Vial Administered 12/02/24 14:51 Dose 40 mg IV .STK-MED ONE Lab/Rad Data: Laboratory Result Diagrams 12/03/24 12:05 12/03/24 12:05 Laboratory Results 12/03/24 12/03/24 12/03/24 Range/Units 14:12 12:05 12:05 WBC 6.3 (3.98-10.04) x10^3/uL RBC 4.33 (3.93-5.22) x10^6/uL Hgb 13.2 (11.2-15.7) g/dL Hct 40.3 (34.1-44.9) % MCV 93.1 (79.4-94.8) fL MCH 30.5 (25.6-32.2) pg MCHC 32.8 (32.2-35.5) g/dL RDW 13.6 (11.7-14.4) % Plt Count 188 (182-369) x10^3/uL MPV 9.4 (9.4-12.3) fL Gran % 65.2 (34.0-71.1) % Immature Gran % (Auto) 0.3 (0.001-0.429) % Nucleat RBC Rel Count 0.0 (0.00-0.2) % Eos # (Auto) 0.24 (0.04-0.36) x10^3/uL Immature Gran # (Auto) 0.02 (0.001-0.031) x10^3u/L Absolute Lymphs (auto) 1.30 (1.18-3.74) x10^3/uL Absolute Monos (auto) 0.62 (0.24-0.86) x10^3/uL Absolute Nucleated RBC 0.00 (0.00-0.012) x10^3u/L Lymphocytes % 20.6 (19.3-51.7) % Monocytes % 9.8 (4.7-12.5) % Eosinophils % 3.8 (0.7-5.8) % Basophils % 0.3 (0.1-1.2) % Absolute Granulocytes 4.10 (1.56-6.13) x10^3/uL Basophils # 0.02 (0.01-0.08) x10^3/uL PT (9.4-12.5) SECONDS INR (0.8-3.0) Sodium 136 (135-145) mmol/L Potassium 3.8 (3.5-5.1) mmol/L Chloride 102 (98-107) mmol/L Carbon Dioxide 24 (22-30) mmol/L Anion Gap 13.8 (5-15) MEQ/L BUN 18 H (7-17) mg/dL Creatinine 1.00 (0.52-1.04) mg/dL Estimated GFR 61.0 ML/MIN Glucose 131 H (74-106) mg/dL Lactic Acid 0.9 (0.4-2.0) Calcium 9.4 (8.4-10.2) mg/dL Total Bilirubin 4.80 H (0.2-1.3) mg/dL AST 156 H (14-36) U/L ALT 135 H (0-35) U/L Alkaline Phosphatase 194 H (38-126) U/L Troponin I (0.000-0.033) ng/mL Serum Total Protein 7.5 (6.3-8.2) g/dL Albumin 4.1 (3.5-5.0) g/dL Lipase 133 (23-300) U/L Urine Color (Yellow) Urine Appearance (Clear) Urine pH (4.6-8.0) Ur Specific [place] (1.005-1.030) Urine Protein (Negative) Urine Glucose (UA) (Negative) mg/dL Urine Ketones (Negative) Urine Blood (Negative) Urine Nitrite (Negative) Urine Bilirubin (Negative) Urine Urobilinogen (0.2) mg/dL Ur Leukocyte Esterase (Negative) U Hyaline Cast (Auto) (0-2) /LPF Urine Microscopic RBC (0-5) /HPF Urine Microscopic WBC (0-5) /HPF Ur Epithelial Cells (None Seen) /HPF Urine Bacteria (None Seen) /HPF Urine Culture Reflexed (NO) 12/02/24 12/02/24 12/02/24 Range/Units 17:36 17:07 15:00 WBC (3.98-10.04) x10^3/uL RBC (3.93-5.22) x10^6/uL Hgb (11.2-15.7) g/dL Hct (34.1-44.9) % MCV (79.4-94.8) fL MCH (25.6-32.2) pg MCHC (32.2-35.5) g/dL RDW (11.7-14.4) % Plt Count (182-369) x10^3/uL MPV (9.4-12.3) fL Gran % (34.0-71.1) % Immature Gran % (Auto) (0.001-0.429) % Nucleat RBC Rel Count (0.00-0.2) % Eos # (Auto) (0.04-0.36) x10^3/uL Immature Gran # (Auto) (0.001-0.031) x10^3u/L Absolute Lymphs (auto) (1.18-3.74) x10^3/uL Absolute Monos (auto) (0.24-0.86) x10^3/uL Absolute Nucleated RBC (0.00-0.012) x10^3u/L Lymphocytes % (19.3-51.7) % Monocytes % (4.7-12.5) % Eosinophils % (0.7-5.8) % Basophils % (0.1-1.2) % Absolute Granulocytes (1.56-6.13) x10^3/uL Basophils # (0.01-0.08) x10^3/uL PT (9.4-12.5) SECONDS INR (0.8-3.0) Sodium (135-145) mmol/L Potassium (3.5-5.1) mmol/L Chloride (98-107) mmol/L Carbon Dioxide (22-30) mmol/L Anion Gap (5-15) MEQ/L BUN (7-17) mg/dL Creatinine (0.52-1.04) mg/dL Estimated GFR ML/MIN Glucose (74-106) mg/dL Lactic Acid 2.4 H 3.2 H (0.4-2.0) Calcium (8.4-10.2) mg/dL Total Bilirubin (0.2-1.3) mg/dL AST (14-36) U/L ALT (0-35) U/L Alkaline Phosphatase (38-126) U/L Troponin I (0.000-0.033) ng/mL Serum Total Protein (6.3-8.2) g/dL Albumin (3.5-5.0) g/dL Lipase (23-300) U/L Urine Color Dark Yellow A (Yellow) Urine Appearance Clear (Clear) Urine pH 6.0 (4.6-8.0) Ur Specific [place] 1.025 (1.005-1.030) Urine Protein Negative (Negative) Urine Glucose (UA) Negative (Negative) mg/dL Urine Ketones Negative (Negative) Urine Blood Negative (Negative) Urine Nitrite Negative (Negative) Urine Bilirubin Moderate A (Negative) Urine Urobilinogen 1.0 A (0.2) mg/dL Ur Leukocyte Esterase Small A (Negative) U Hyaline Cast (Auto) NONE SEEN (0-2) /LPF Urine Microscopic RBC 0-2 (0-5) /HPF Urine Microscopic WBC 3-5 (0-5) /HPF Ur Epithelial Cells Rare (None Seen) /HPF Urine Bacteria None Seen (None Seen) /HPF Urine Culture Reflexed NO (NO) 12/02/24 12/02/24 12/02/24 Range/Units 14:30 14:30 14:30 WBC (3.98-10.04) x10^3/uL RBC (3.93-5.22) x10^6/uL Hgb (11.2-15.7) g/dL Hct (34.1-44.9) % MCV (79.4-94.8) fL MCH (25.6-32.2) pg MCHC (32.2-35.5) g/dL RDW (11.7-14.4) % Plt Count (182-369) x10^3/uL MPV (9.4-12.3) fL Gran % (34.0-71.1) % Immature Gran % (Auto) (0.001-0.429) % Nucleat RBC Rel Count (0.00-0.2) % Eos # (Auto) (0.04-0.36) x10^3/uL Immature Gran # (Auto) (0.001-0.031) x10^3u/L Absolute Lymphs (auto) (1.18-3.74) x10^3/uL Absolute Monos (auto) (0.24-0.86) x10^3/uL Absolute Nucleated RBC (0.00-0.012) x10^3u/L Lymphocytes % (19.3-51.7) % Monocytes % (4.7-12.5) % Eosinophils % (0.7-5.8) % Basophils % (0.1-1.2) % Absolute Granulocytes (1.56-6.13) x10^3/uL Basophils # (0.01-0.08) x10^3/uL PT 12.5 (9.4-12.5) SECONDS INR 1.16 (0.8-3.0) Sodium 137 (135-145) mmol/L Potassium 3.6 (3.5-5.1) mmol/L Chloride 101 (98-107) mmol/L Carbon Dioxide 23 (22-30) mmol/L Anion Gap 16.3 H (5-15) MEQ/L BUN 18 H (7-17) mg/dL Creatinine 1.08 H (0.52-1.04) mg/dL Estimated GFR 55.6 ML/MIN Glucose 227 H (74-106) mg/dL Lactic Acid (0.4-2.0) Calcium 10.2 (8.4-10.2) mg/dL Total Bilirubin 8.60 H (0.2-1.3) mg/dL AST 195 H (14-36) U/L ALT 165 H (0-35) U/L Alkaline Phosphatase 201 H (38-126) U/L Troponin I < 0.012 (0.000-0.033) ng/mL Serum Total Protein 7.7 (6.3-8.2) g/dL Albumin 4.3 (3.5-5.0) g/dL Lipase 206 (23-300) U/L Urine Color (Yellow) Urine Appearance (Clear) Urine pH (4.6-8.0) Ur Specific [place] (1.005-1.030) Urine Protein (Negative) Urine Glucose (UA) (Negative) mg/dL Urine Ketones (Negative) Urine Blood (Negative) Urine Nitrite (Negative) Urine Bilirubin (Negative) Urine Urobilinogen (0.2) mg/dL Ur Leukocyte Esterase (Negative) U Hyaline Cast (Auto) (0-2) /LPF Urine Microscopic RBC (0-5) /HPF Urine Microscopic WBC (0-5) /HPF Ur Epithelial Cells (None Seen) /HPF Urine Bacteria (None Seen) /HPF Urine Culture Reflexed (NO) 12/02/ Range/Units 14:30 WBC 9.1 (3.98-10.04) x10^3/uL RBC 4.57 (3.93-5.22) x10^6/uL Hgb 13.9 (11.2-15.7) g/dL Hct 42.2 (34.1-44.9) % MCV 92.3 (79.4-94.8) fL MCH 30.4 (25.6-32.2) pg MCHC 32.9 (32.2-35.5) g/dL RDW 13.6 (11.7-14.4) % Plt Count 219 (182-369) x10^3/uL MPV 9.2 L (9.4-12.3) fL Gran % 69.7 (34.0-71.1) % Immature Gran % (Auto) 0.3 (0.001-0.429) % Nucleat RBC Rel Count 0.0 (0.00-0.2) % Eos # (Auto) 0.13 (0.04-0.36) x10^3/uL Immature Gran # (Auto) 0.03 (0.001-0.031) x10^3u/L Absolute Lymphs (auto) 1.78 (1.18-3.74) x10^3/uL Absolute Monos (auto) 0.80 (0.24-0.86) x10^3/uL Absolute Nucleated RBC 0.00 (0.00-0.012) x10^3u/L Lymphocytes % 19.6 (19.3-51.7) % Monocytes % 8.8 (4.7-12.5) % Eosinophils % 1.4 (0.7-5.8) % Basophils % 0.2 (0.1-1.2) % Absolute Granulocytes 6.30 H (1.56-6.13) x10^3/uL Basophils # 0.02 (0.01-0.08) x10^3/uL PT (9.4-12.5) SECONDS INR (0.8-3.0) Sodium (135-145) mmol/L Potassium (3.5-5.1) mmol/L Chloride (98-107) mmol/L Carbon Dioxide (22-30) mmol/L Anion Gap (5-15) MEQ/L BUN (7-17) mg/dL Creatinine (0.52-1.04) mg/dL Estimated GFR ML/MIN Glucose (74-106) mg/dL Lactic Acid (0.4-2.0) Calcium (8.4-10.2) mg/dL Total Bilirubin (0.2-1.3) mg/dL AST (14-36) U/L ALT (0-35) U/L Alkaline Phosphatase (38-126) U/L Troponin I (0.000-0.033) ng/mL Serum Total Protein (6.3-8.2) g/dL Albumin (3.5-5.0) g/dL Lipase (23-300) U/L Urine Color (Yellow) Urine Appearance (Clear) Urine pH (4.6-8.0) Ur Specific [place] (1.005-1.030) Urine Protein (Negative) Urine Glucose (UA) (Negative) mg/dL Urine Ketones (Negative) Urine Blood (Negative) Urine Nitrite (Negative) Urine Bilirubin (Negative) Urine Urobilinogen (0.2) mg/dL Ur Leukocyte Esterase (Negative) U Hyaline Cast (Auto) (0-2) /LPF Urine Microscopic RBC (0-5) /HPF Urine Microscopic WBC (0-5) /HPF Ur Epithelial Cells (None Seen) /HPF Urine Bacteria (None Seen) /HPF Urine Culture Reflexed (NO) - Progress Progress: improved, pain not gone completely Discussed with Dr.: Other (Dr. Elizabeth HU at [facility], Dr. Duque hospitalist [facility], Dr. Anderson hospitalist [facility]) Counseled pt/family regarding: lab results, diagnosis, rad results <ERIKA EDWARDS - Last Filed: 12/02/24 23:34> - Progress Discussed with : [place] <MORENA FOX - Last Filed: 12/03/24 14:41> - Progress Progress Note: 12/02/24 23:35 69-year-old is evaluated in the ER for upper abdominal pain with nausea vomiting without diarrhea. Patient has significant tenderness in the upper abdomen, given fluids and symptomatic treatment, on reevaluation her pain is better but not completely resolved. Workup showed normal white count, chemistries fairly unremarkable except for elevated transaminases in 160s and 190s and a total bilirubin of 8.3, ALP of 201. Patient does have history of cholecystectomy in 2021. I have obtained CT abdomen pelvis with contrast which showed fatty liver, small hiatal hernia but no other acute findings. Has normal lipase. She has no history of fever chills. I believe patient needs further evaluation of this elevated total bili with GI services. I have discussed with Dr. Mallory at [facility] at 7:40 PM, reviewed history, workup, recommended transfer to facility with GI and ERCP services which are not available in [facility]. I have discussed with Kyra hospitalist for [facility], reviewed history workup and agreed with transfer. Later on patient did not want to go [place] and would rather like to go to [place]. Discussed with Dr. Anderson hospitalist at [facility], reviewed history of workup and agreed with transfer. (ERIKA EDWARDS) 12/03/24 14:38 I repeated labs on this patient. There is improvement in this patient's liver function test. She has been hemodynamically stable during her stay in the emergency department. We have checked with [facility] and there does not appear to be a bed available today or this evening. I spoke with Dr. Ridley, our telehospitalist and he agrees to place this patient in observation until the bed opens up presumably tomorrow. (MORENA FOX) Medical Desision Making - Independent Historian Additional History obtained from: Spouse - Discussion of managment Care discussed with:: hospitalist Reviewed:: Test results Agreed on:: Treatment plan Will see patient: in hospital - Diagnostic Testing Diagnostic test were ordered, analyzed, and reviewed by me: Yes Radiological Interpretation: Reviewed by me, Teleradiologist Report - Risk of complications The pt has a mod risk of morbidity or mortality based on: Need for prescription drug management The pt has a high risk of morbidity or mortality based on: Decision regarding hospitilization or escalation of hosp level of care <ERIKA EDWARDS - Last Filed: 12/02/24 23:34> - Departure Departure Disposition: Transfer Critical Care Time: No <ERIKA EDWARDS - Last Filed: 12/02/24 23:34> - Departure Departure Disposition: Observation <MORENA FOX - Last Filed: 12/03/24 14:41> - Departure Clinical Impression: Elevated transaminase level, Hyperbilirubinemia, Liver failure Condition: Stable Referrals: TITO BREWSTER, [employer]NAGER [Primary Care Provider] - Follow up/PCP as directed
[2024-12-02 14:50] LABS: BASOPHIL % 0.2 % (0.1-1.2); Basophil (Absolute #) 0.02 x10^3/uL (0.01-0.08); Eosinophil % 1.4 % (0.7-5.8); Eosinophil (Absolute #) 0.13 x10^3/uL (0.04-0.36); Hematocrit 42.2 % (34.1-44.9); Hemoglobin 13.9 g/dL (11.2-15.7); IMMATURE GRAN # 0.03 x10^3u/L (0.001-0.031); IMMATURE GRAN % 0.3 % (0.001-0.429); Lymphocyte (Absolute #) 1.78 x10^3/uL (1.18-3.74); Lymphocytes % 19.6 % (19.3-51.7); Mean Cell Volume 92.3 fL (79.4-94.8); Mean Corpuscular Hemoglobin 30.4 pg (25.6-32.2); Mean Corpuscular Hgb Concent. 32.9 g/dL (32.2-35.5); Mean Platelet Volume 9.2 fL (9.4-12.3); Monocytes % 8.8 % (4.7-12.5); Neutrophil % 69.7 % (34.0-71.1); Platelet Count 219 x10^3/uL (182-369); Red Blood Count 4.57 x10^6/uL (3.93-5.22); Red Cell Distribution Width 13.6 % (11.7-14.4); White Blood Count 9.1 x10^3/uL (3.98-10.04)
[2024-12-02] MEDS ORDERED: PROTONIX 40 MG IV IV ONE (14:50)
[2024-12-02] MEDS ORDERED: Sodium Chloride 0.9% 1000 ML 1,000 ML ONE (14:50)
[2024-12-02] MEDS ORDERED: MORPHINE SULFATE 4 MG INJ ONE ×2 (14:50→23:03)
[2024-12-02] MEDS ORDERED: Zofran 4 MG/2 ML VIAL ONE (14:50)
[2024-12-02] MEDS: Zofran 4 MG/2 ML VIAL IV ONE (14:51)
[2024-12-02] MEDS: Sodium Chloride 0.9% 1000 ML 1,000 ML IV STA (14:51)
[2024-12-02] MEDS: PROTONIX 40 MG IV IV ONE (14:53)
[2024-12-02] MEDS: MORPHINE SULFATE 4 MG INJ IV ONE ×2 (14:55→23:04)
[2024-12-02 15:32] LABS: INR 1.16 (0.8-3.0); PROTIME 12.5 SECONDS (9.4-12.5)
[2024-12-02 15:33] LABS: ALBUMIN 4.3 g/dL (3.5-5.0); ANION GAP 16.3 MEQ/L (5-15); BILIRUBIN,TOTAL 8.6 mg/dL (0.2-1.3); Calcium 10.2 mg/dL (8.4-10.2); Creatinine 1 1.08 mg/dL (0.52-1.04); EST GLOMERULAR FILTRATION RATE 55.6 ML/MIN; Potassium 3.6 mmol/L (3.5-5.1); Total Protein 7.7 g/dL (6.3-8.2)
[2024-12-02 17:48] LABS: Appearance Clear (Clear); Bacteria None Seen /HPF (None Seen); Bilirubin Moderate (Negative); Blood Negative (Negative); Epithelial Cells Rare /HPF (None Seen); Glucose, Urine Negative (Negative); Hyaline Casts NONE SEEN /LPF (0-2); Ketones Negative (Negative); Leukocyte Esterase Small (Negative); Nitrite Negative (Negative); Protein,Urine Dip Negative (Negative); RBC 0-2 /HPF (0-5); Specific Gravity 1.025 (1.005-1.030)
[2024-12-03] MEDS ORDERED: Zofran 4 MG/2 ML VIAL ONE (08:33)
[2024-12-03] MEDS ORDERED: MORPHINE SULFATE 4 MG INJ ONE (08:33)
[2024-12-03] MEDS: Zofran 4 MG/2 ML VIAL IV ONE (08:37)
[2024-12-03] MEDS: MORPHINE SULFATE 4 MG INJ IV ONE (08:37)
--- NOTE | 2024-12-03 08:40 | XRAY ---
Indication: Upper abdomen pain. Vomiting. Jaundice. Multiple contiguous axial images obtained through the abdomen and pelvis using 80 cc Isovue 370 contrast. Comparison: March 20, 2022 Lung bases again demonstrates a few tiny calcified granulomas. No infiltrate or effusion. Heart not enlarged. Noncontrasted stomach and bowel loops appear nonobstructed again with sigmoid diverticulosis. Stable bilateral renal cysts and mild fatty liver. Interval cholecystectomy. No free fluid/air. Remaining liver, pancreas, spleen, adrenal glands, kidneys, ureters, bladder, and uterus are unremarkable. Stable mild aortoiliac calcifications. No AAA or pathologic retroperitoneal lymphadenopathy. Osseous structures intact again with mild degenerative changes throughout the spine. New epigastric fatty ventral hernia at least 3 cm in diameter. Impression: 1. Chronic findings including sigmoid diverticulosis, bilateral renal cysts, fatty liver, arteriosclerotic disease, chronic bony findings, fatty ventral hernia, and old granulomatous disease. 2. Remaining CT abdomen/pelvis with contrast exam is negative.
[2024-12-03 12:09] LABS: BASOPHIL % 0.3 % (0.1-1.2); Basophil (Absolute #) 0.02 x10^3/uL (0.01-0.08); Eosinophil % 3.8 % (0.7-5.8); Eosinophil (Absolute #) 0.24 x10^3/uL (0.04-0.36); Hematocrit 40.3 % (34.1-44.9); Hemoglobin 13.2 g/dL (11.2-15.7); IMMATURE GRAN # 0.02 x10^3u/L (0.001-0.031); IMMATURE GRAN % 0.3 % (0.001-0.429); Lymphocytes % 20.6 % (19.3-51.7); Mean Cell Volume 93.1 fL (79.4-94.8); Mean Corpuscular Hemoglobin 30.5 pg (25.6-32.2); Mean Corpuscular Hgb Concent. 32.8 g/dL (32.2-35.5); Mean Platelet Volume 9.4 fL (9.4-12.3); Monocyte (Absolute #) 0.62 x10^3/uL (0.24-0.86); Monocytes % 9.8 % (4.7-12.5); Neutrophil % 65.2 % (34.0-71.1); Platelet Count 188 x10^3/uL (182-369); Red Blood Count 4.33 x10^6/uL (3.93-5.22); Red Cell Distribution Width 13.6 % (11.7-14.4); White Blood Count 6.3 x10^3/uL (3.98-10.04)
[2024-12-03] MEDS: Sodium Chloride 0.9% 1000 ML 1,000 ML IV SCH (12:31)
[2024-12-03 12:49] LABS: BILIRUBIN,TOTAL 4.8 mg/dL (0.2-1.3); Calcium 9.4 mg/dL (8.4-10.2); Total Protein 7.5 g/dL (6.3-8.2)
[2024-12-03 13:36] LABS: ALBUMIN 4.1 g/dL (3.5-5.0); Potassium 3.8 mmol/L (3.5-5.1)
[2024-12-03 13:37] LABS: ANION GAP 13.8 MEQ/L (5-15)
[2024-12-03 15:27] VITALS: RESP 18
--- NOTE | 2024-12-03 16:24 | PCM.HP ---
History of Present Illness - Chief Complaint Chief Complaint: jaundice, elvated LFT Date: 12/03/24 History of Present Illness: is a 69-year-old female with history of hypertension, diabetes mellitus, cholecystectomy, GERD, and chronic morbid obesity. She presented in the ER with 3 days history of upper abdominal pain with nausea vomiting, nonprojectile, nonbilious without constipation or diarrhea. Patient reports 9/10 intensity sharp pain in the upper abdomen with no significant aggravating or relieving factors. No fever or chills reported. She has been taking [id number] medications with no significant relief. Patient looks jaundiced and has no history of liver disease/alcohol use. She is awaiting tx to [facility] in [place] for GI. She will likely have a bed tomorrow. Until then she will hold here. Labs are improving with IVF. Will continue pain and nausea meds PRN. US abd and Hep. panel ordered. She denies CP, SOB, V/D. She did have vomiting yesterday and she had LUQ, and RUQ pain with palpation. - Review of Systems Constitutional: No Fever, No Chills Eyes: No Symptoms Ears, Nose, & Throat: No Symptoms Respiratory: No Cough, No Short Of Breath Cardiac: No Chest Pain, No Edema, No Syncope Abdominal/Gastrointestinal: Abdominal Pain, No Nausea, No Vomiting, No Diarrhea Genitourinary Symptoms: No Dysuria Musculoskeletal: No Back Pain, No Neck Pain Skin: Other (jaundice), No Rash Neurological: No Dizziness, No Focal Weakness, No Sensory Changes Psychological: No Symptoms Endocrine: No Symptoms Hematologic/Lymphatic: No Symptoms Immunological/Allergic: No Symptoms Medications & Allergies Home Medications: Home Medication List ARIPiprazole [Aripiprazole] 2 mg PO DAILY 04/11/22 [History Confirmed 04/22/22] Cetirizine HCl 10 mg PO DAILY 04/11/22 [History Confirmed 04/22/22] Dapagliflozin Propanediol [Farxiga] 10 mg PO DAILY 04/11/22 [History Confirmed 04/22/22] Duloxetine HCl 60 mg PO DAILY 04/11/22 [History Confirmed 04/22/22] Gabapentin 100 mg PO TID 04/11/22 [History Confirmed 04/22/22] Loratadine 10 mg PO DAILY 04/11/22 [History Confirmed 04/22/22] Metoprolol Tartrate 50 mg [Lopressor 50 MG] 50 mg PO DAILY 04/11/22 [History Confirmed 04/22/22] Omeprazole 40 mg PO DAILY 04/11/22 [History Confirmed 04/22/22] allopurinoL [Allopurinol] 1 tab PO BID 04/11/22 [History Confirmed 04/22/22] hydroCHLOROthiazide [Hydrochlorothiazide] 25 mg PO DAILY 04/11/22 [History Confirmed 04/22/22] icosapent ethyL [Vascepa] 1 gm PO BID 04/11/22 [History Confirmed 04/22/22] Hydrocodone/Acetaminophen [Hydrocodone-Acetamin 5-325 mg] 1 tab PO Q4HPRN PRN #22 tablet MDD 6 04/22/22 [Rx] Allergies/Adverse Reactions: Allergies Allergy/AdvReac Type Severity Reaction Status Date / Time No Known Drug Allergies Allergy Verified 12/02/24 14:31 - Past Medical History Past Medical History: Yes Neurological History: No Pertinent History ENT History: No Pertinent History Cardiac History: Hypertension Respiratory History: No Pertinent History Endocrine Medical History: Diabetes Type II Musculoskelatal History: Other GI Medical History: GERD History: No Pertinent History Pyscho-Social History: No Pertinent History Reproductive Disorders: No Pertinent History Comment: SX HX - TRIGGER FINGER RELEASE RIGHT, BILATERAL FOOT SURGERY FOR PLANTAR FASCITIS - Past Surgical History Past Surgical History: Yes Neuro Surgical History: No Pertinent History Cardiac History: No Pertinent History Respiratory Surgery: No Pertinent History GI Surgical History: No Pertinent History Genitourinary Surgical Hx: No Pertinent History Musculskeletal Surgical Hx: Orthopedic Surgery Female Surgical History: No Pertinent History Other Surgical History: Right shoulder surgery-3 years ago. plantar fascititis surgery. trigger finger release Significant Family History: no pertinent family hx - Social History Smoking Status: Never smoker Exposure to second hand smoke: No Alcohol: None Drug Use: none - Social Determinants of Health Will the patient participate in the screening: Yes Do you worry about a steady place to live?: No Do you have any problems with any of the following?: No known problems In the past 12 months,have you had to go without utilities?: No Have you or anyone in your house had to go without enough: No Transportation Issues: No Has anyone in your support network made you feel unsafe?: No - Physical Exam Vital Signs: Vital Signs - 24 hr Temp Pulse Resp BP Pulse Ox 12/03/24 15:30 132/91 12/03/24 15:00 88 18 181/87 96 12/03/24 14:30 88 19 151/97 94 L 12/03/24 14:20 100 H 23 95 12/03/24 14:10 93 H 19 95 12/03/24 14:01 92 H 21 96 12/03/24 13:30 94 H 23 133/94 94 L 12/03/24 13:00 78 26 H 129/84 94 L 12/03/24 12:30 93 H 20 143/96 94 L 12/03/24 12:29 89 22 93 L 12/03/24 12:20 87 21 94 L 12/03/24 12:10 83 20 94 L 12/03/24 12:02 92 H 19 94 L 12/03/24 11:30 89 20 136/86 94 L 12/03/24 11:00 86 18 155/86 95 12/03/24 10:30 88 16 137/79 94 L 12/03/24 10:00 91 H 23 140/85 92 L 12/03/24 09:30 92 H 22 150/92 91 L 12/03/24 09:00 92 H 12 157/95 93 L 12/03/24 08:30 97 H 17 153/84 94 L 12/03/24 08:00 89 21 145/89 95 12/03/24 07:30 88 23 114/80 92 L 12/03/24 07:00 97 H 20 121/69 94 L 12/03/24 06:30 92 H 19 145/71 91 L 12/03/24 06:00 91 H 22 127/81 92 L 12/03/24 05:30 100 H 21 150/85 94 L 12/03/24 05:00 89 21 145/79 92 L 12/03/24 04:30 90 21 133/86 94 L 12/03/24 04:00 94 H 22 126/80 92 L 12/03/24 03:30 94 H 21 120/80 88 L 12/03/24 03:00 95 H 20 115/78 91 L 12/03/24 02:30 97 H 19 121/75 91 L 12/03/24 02:00 99 H 23 121/76 92 L 12/03/24 01:30 100 H 23 144/71 92 L 12/03/24 01:00 99 H 26 H 102/76 92 L 12/03/24 00:30 104 H 22 119/71 92 L 12/03/24 00:00 107 H 22 100/73 93 L 12/02/24 23:39 97 12/02/24 23:30 107 H 23 114/66 92 L 12/02/24 23:08 105 H 16 129/66 98 12/02/24 23:02 107 H 25 H 94 L 12/02/24 22:30 97 H 22 130/70 94 L 12/02/24 22:00 98 H 20 128/81 93 L 12/02/24 21:37 99.2 F 12/02/24 21:30 98 H 24 150/99 92 L 12/02/24 21:00 100 H 22 163/78 97 12/02/24 20:30 97 H 20 150/128 95 12/02/24 20:00 104 H 22 151/80 96 12/02/24 19:31 103 H 23 130/75 96 12/02/24 19:09 111 H 28 H 196/98 97 12/02/24 18:31 104 H 17 151/79 12/02/24 18:00 104 H 21 154/85 96 12/02/24 17:30 105 H 13 146/91 97 12/02/24 17:21 109 H 19 146/91 95 12/02/24 17:13 98 12/02/24 16:30 103 H 18 147/95 97 General Appearance: no apparent distress, alert, obese Neurologic Exam: alert, oriented x 3, cooperative, normal mood/affect, nml cerebellar function, nml station & gait, sensation nml, No motor deficits Eye Exam: PERRL/EOMI, other (jaundice) Ears, Nose, Throat Exam: normal ENT inspection, TMs normal, pharynx normal, moist mucous membranes Neck Exam: normal inspection, non-tender, supple, full range of motion Respiratory Exam: normal breath sounds, lungs clear, No respiratory distress Cardiovascular Exam: regular rate/rhythm, normal heart sounds, normal peripheral pulses Gastrointestinal/Abdomen Exam: soft, normal bowel sounds, tenderness (LUQ, RUQ), distention, No mass Back Exam: normal inspection, normal range of motion, No CVA tenderness, No vertebral tenderness Extremity Exam: normal inspection, normal range of motion, pelvis stable, limited range of motion (Left knee- CD[facility]- [place]) Skin Exam: normal color, warm, dry, No rash Lymphatic Exam: No adenopathy Results - Labs Lab/Micro Results: Lab Results-Last 24 Hours 12/02/24 12/02/24 12/03/24 Range/Units 17:07 17:36 12:05 WBC 6.3 (3.98-10.04) x10^3/uL RBC 4.33 (3.93-5.22) x10^6/uL Hgb 13.2 (11.2-15.7) g/dL Hct 40.3 (34.1-44.9) % MCV 93.1 (79.4-94.8) fL MCH 30.5 (25.6-32.2) pg MCHC 32.8 (32.2-35.5) g/dL RDW 13.6 (11.7-14.4) % Plt Count 188 (182-369) x10^3/uL MPV 9.4 (9.4-12.3) fL Gran % 65.2 (34.0-71.1) % Immature Gran % (Auto) 0.3 (0.001-0.429) % Nucleat RBC Rel Count 0.0 (0.00-0.2) % Eos # (Auto) 0.24 (0.04-0.36) x10^3/uL Immature Gran # (Auto) 0.02 (0.001-0.031) x10^3u/L Absolute Lymphs (auto) 1.30 (1.18-3.74) x10^3/uL Absolute Monos (auto) 0.62 (0.24-0.86) x10^3/uL Absolute Nucleated RBC 0.00 (0.00-0.012) x10^3u/L Lymphocytes % 20.6 (19.3-51.7) % Monocytes % 9.8 (4.7-12.5) % Eosinophils % 3.8 (0.7-5.8) % Basophils % 0.3 (0.1-1.2) % Absolute Granulocytes 4.10 (1.56-6.13) x10^3/uL Basophils # 0.02 (0.01-0.08) x10^3/uL Sodium (135-145) mmol/L Potassium (3.5-5.1) mmol/L Chloride (98-107) mmol/L Carbon Dioxide (22-30) mmol/L Anion Gap (5-15) MEQ/L BUN (7-17) mg/dL Creatinine (0.52-1.04) mg/dL Estimated GFR ML/MIN Glucose (74-106) mg/dL Lactic Acid 2.4 H (0.4-2.0) Calcium (8.4-10.2) mg/dL Total Bilirubin (0.2-1.3) mg/dL AST (14-36) U/L ALT (0-35) U/L Alkaline Phosphatase (38-126) U/L Serum Total Protein (6.3-8.2) g/dL Albumin (3.5-5.0) g/dL Lipase (23-300) U/L Urine Color Dark Yellow A (Yellow) Urine Appearance Clear (Clear) Urine pH 6.0 (4.6-8.0) Ur Specific [place] 1.025 (1.005-1.030) Urine Protein Negative (Negative) Urine Glucose (UA) Negative (Negative) mg/dL Urine Ketones Negative (Negative) Urine Blood Negative (Negative) Urine Nitrite Negative (Negative) Urine Bilirubin Moderate A (Negative) Urine Urobilinogen 1.0 A (0.2) mg/dL Ur Leukocyte Esterase Small A (Negative) U Hyaline Cast (Auto) NONE SEEN (0-2) /LPF Urine Microscopic RBC 0-2 (0-5) /HPF Urine Microscopic WBC 3-5 (0-5) /HPF Ur Epithelial Cells Rare (None Seen) /HPF Urine Bacteria None Seen (None Seen) /HPF Urine Culture Reflexed NO (NO) 12/03/24 12/03/24 Range/Units 12:05 14:12 WBC (3.98-10.04) x10^3/uL RBC (3.93-5.22) x10^6/uL Hgb (11.2-15.7) g/dL Hct (34.1-44.9) % MCV (79.4-94.8) fL MCH (25.6-32.2) pg MCHC (32.2-35.5) g/dL RDW (11.7-14.4) % Plt Count (182-369) x10^3/uL MPV (9.4-12.3) fL Gran % (34.0-71.1) % Immature Gran % (Auto) (0.001-0.429) % Nucleat RBC Rel Count (0.00-0.2) % Eos # (Auto) (0.04-0.36) x10^3/uL Immature Gran # (Auto) (0.001-0.031) x10^3u/L Absolute Lymphs (auto) (1.18-3.74) x10^3/uL Absolute Monos (auto) (0.24-0.86) x10^3/uL Absolute Nucleated RBC (0.00-0.012) x10^3u/L Lymphocytes % (19.3-51.7) % Monocytes % (4.7-12.5) % Eosinophils % (0.7-5.8) % Basophils % (0.1-1.2) % Absolute Granulocytes (1.56-6.13) x10^3/uL Basophils # (0.01-0.08) x10^3/uL Sodium 136 (135-145) mmol/L Potassium 3.8 (3.5-5.1) mmol/L Chloride 102 (98-107) mmol/L Carbon Dioxide 24 (22-30) mmol/L Anion Gap 13.8 (5-15) MEQ/L BUN 18 H (7-17) mg/dL Creatinine 1.00 (0.52-1.04) mg/dL Estimated GFR 61.0 ML/MIN Glucose 131 H (74-106) mg/dL Lactic Acid 0.9 (0.4-2.0) Calcium 9.4 (8.4-10.2) mg/dL Total Bilirubin 4.80 H (0.2-1.3) mg/dL AST 156 H (14-36) U/L ALT 135 H (0-35) U/L Alkaline Phosphatase 194 H (38-126) U/L Serum Total Protein 7.5 (6.3-8.2) g/dL Albumin 4.1 (3.5-5.0) g/dL Lipase 133 (23-300) U/L Urine Color (Yellow) Urine Appearance (Clear) Urine pH (4.6-8.0) Ur Specific [place] (1.005-1.030) Urine Protein (Negative) Urine Glucose (UA) (Negative) mg/dL Urine Ketones (Negative) Urine Blood (Negative) Urine Nitrite (Negative) Urine Bilirubin (Negative) Urine Urobilinogen (0.2) mg/dL Ur Leukocyte Esterase (Negative) U Hyaline Cast (Auto) (0-2) /LPF Urine Microscopic RBC (0-5) /HPF Urine Microscopic WBC (0-5) /HPF Ur Epithelial Cells (None Seen) /HPF Urine Bacteria (None Seen) /HPF Urine Culture Reflexed (NO) - Radiology Impressions Radiology Exams & Impressions: Radiology Procedures Category Date Time Status ABDOMEN AND PELVIS W CONTRAST [CT] Stat Exams 12/02/24 14:45 Completed Assessment/Plan (1) Liver failure Current Visit: Yes Status: Acute Assessment & Plan: - CBC, CMP reviewed - + Jaundice- eyes - ammonia level stat - pending tx to higher level of care - Hepatitis panel pending - Zofran PRN N/V - Morphine for pain (2) Transaminitis Current Visit: Yes Status: Acute Assessment & Plan: - AST 156, ALT 135 - US Abd - Hepatitis panel Code(s): R74.01 - ELEVATION OF LEVELS OF LIVER TRANSAMINASE LEVELS (3) Hyperbilirubinemia Current Visit: Yes Status: Acute Assessment & Plan: - Bili 4.80- improving - see above plan Code(s): E80.6 - OTHER DISORDERS OF BILIRUBIN METABOLISM (4) S/P TKR (total knee replacement) Current Visit: Yes Status: Acute Qualifiers: Laterality: left Qualified Code(s): Z96.652 - Presence of left artificial knee joint Assessment & Plan: - Pt had surgery on 11/05/[address] Hammond in [place] - Has been using norco for pain OP. - Sutures in place Code(s): Z96.659 - PRESENCE OF UNSPECIFIED ARTIFICIAL KNEE JOINT (5) HTN (hypertension) Current Visit: Yes Status: Chronic Assessment & Plan: - resume home meds Code(s): I10 - ESSENTIAL (PRIMARY) HYPERTENSION (6) Morbid obesity with BMI of 50.0-59.9, adult Current Visit: Yes Status: Chronic Assessment & Plan: - advised diet and exercise control Code(s): E66.01 - MORBID (SEVERE) OBESITY DUE TO EXCESS CALORIES; Z68.43 - BODY MASS INDEX [BMI] 50.0-59.9, ADULT (7) GERD (gastroesophageal reflux disease) Current Visit: Yes Status: Chronic Assessment & Plan: - continue protonix Code(s): K21.9 - GASTRO-ESOPHAGEAL REFLUX DISEASE WITHOUT ESOPHAGITIS (8) Type II diabetes mellitus Current Visit: Yes Status: Chronic Assessment & Plan: - currently not taking any home meds - accuchecks ac/hs, Humalog s/s - carb controlled diet - A1C pending VTE: SCD PPI: Protonix Next of KIN: Spouse Nikolay [phone] D/C plan: tomorrow Code status: Full
[2024-12-03] MEDS ORDERED: HUMALOG SQ PRN (16:32)
--- NOTE | 2024-12-03 18:56 | PCM.DS ---
Discharge Summary Date of Admission: 12/03/24 16:12 Date of Discharge: 12/03/24 Admitting Physician: JESSIE QUINTERO MD Primary Care Provider: TITO BREWSTER Allergies Allergies No Known Drug Allergies Allergy (Verified 12/02/24 14:31) Hospital Summary - Hospital Course Hospital Course: History of Present Illness: is a 69-year-old female with history of hypertension, diabetes mellitus, cholecystectomy, GERD, and chronic morbid obesity. She presented in the ER with 3 days history of upper abdominal pain with nausea vomiting, nonprojectile, nonbilious without constipation or diarrhea. Patient reports 9/10 intensity sharp pain in the upper abdomen with no significant aggravating or relieving factors. No fever or chills reported. She has been taking mqch-jwu-zquftlo medications with no significant relief. Patient looks jaundiced and has no history of liver disease/alcohol use. She is awaiting tx to [facility] in [place] for GI. She will likely have a bed tomorrow. Until then she will hold here. Labs are improving with IVF. Will continue pain and nausea meds PRN. US abd and Hep. panel ordered. She denies CP, SOB, V/D. She did have vomiting yesterday and she had LUQ, and RUQ pain with palpation. Bed available and will tx to higher level of care. - Vitals & Intake/Output Vital Signs: Vital Signs Temperature 99.2 F 12/02/24 21:37 Pulse Rate 88 12/03/24 15:00 Respiratory Rate 18 12/03/24 15:00 Blood Pressure 132/91 12/03/24 15:30 O2 Sat by Pulse Oximetry 96 12/03/24 15:00 Intake & Output: Intake & Output 12/01/24 12/02/24 12/03/24 12/04/24 11:59 11:59 11:59 11:59 Weight 150 kg 150 kg - Lab Result Diagrams: 12/03/24 12:05 12/03/24 12:05 Lab Results-Last 24 Hrs: Lab Results-Last 24 Hours 12/02/24 12/03/24 12/03/24 Range/Units 17:07 12:05 12:05 WBC 6.3 (3.98-10.04) x10^3/uL RBC 4.33 (3.93-5.22) x10^6/uL Hgb 13.2 (11.2-15.7) g/dL Hct 40.3 (34.1-44.9) % MCV 93.1 (79.4-94.8) fL MCH 30.5 (25.6-32.2) pg MCHC 32.8 (32.2-35.5) g/dL RDW 13.6 (11.7-14.4) % Plt Count 188 (182-369) x10^3/uL MPV 9.4 (9.4-12.3) fL Gran % 65.2 (34.0-71.1) % Immature Gran % (Auto) 0.3 (0.001-0.429) % Nucleat RBC Rel Count 0.0 (0.00-0.2) % Eos # (Auto) 0.24 (0.04-0.36) x10^3/uL Immature Gran # (Auto) 0.02 (0.001-0.031) x10^3u/L Absolute Lymphs (auto) 1.30 (1.18-3.74) x10^3/uL Absolute Monos (auto) 0.62 (0.24-0.86) x10^3/uL Absolute Nucleated RBC 0.00 (0.00-0.012) x10^3u/L Lymphocytes % 20.6 (19.3-51.7) % Monocytes % 9.8 (4.7-12.5) % Eosinophils % 3.8 (0.7-5.8) % Basophils % 0.3 (0.1-1.2) % Absolute Granulocytes 4.10 (1.56-6.13) x10^3/uL Basophils # 0.02 (0.01-0.08) x10^3/uL Sodium 136 (135-145) mmol/L Potassium 3.8 (3.5-5.1) mmol/L Chloride 102 (98-107) mmol/L Carbon Dioxide 24 (22-30) mmol/L Anion Gap 13.8 (5-15) MEQ/L BUN 18 H (7-17) mg/dL Creatinine 1.00 (0.52-1.04) mg/dL Estimated GFR 61.0 ML/MIN Glucose 131 H (74-106) mg/dL Lactic Acid 2.4 H (0.4-2.0) Calcium 9.4 (8.4-10.2) mg/dL Total Bilirubin 4.80 H (0.2-1.3) mg/dL AST 156 H (14-36) U/L ALT 135 H (0-35) U/L Alkaline Phosphatase 194 H (38-126) U/L Ammonia (9-30) umol/L Serum Total Protein 7.5 (6.3-8.2) g/dL Albumin 4.1 (3.5-5.0) g/dL Lipase 133 (23-300) U/L 12/03/24 12/03/24 Range/Units 14:12 17:45 WBC (3.98-10.04) x10^3/uL RBC (3.93-5.22) x10^6/uL Hgb (11.2-15.7) g/dL Hct (34.1-44.9) % MCV (79.4-94.8) fL MCH (25.6-32.2) pg MCHC (32.2-35.5) g/dL RDW (11.7-14.4) % Plt Count (182-369) x10^3/uL MPV (9.4-12.3) fL Gran % (34.0-71.1) % Immature Gran % (Auto) (0.001-0.429) % Nucleat RBC Rel Count (0.00-0.2) % Eos # (Auto) (0.04-0.36) x10^3/uL Immature Gran # (Auto) (0.001-0.031) x10^3u/L Absolute Lymphs (auto) (1.18-3.74) x10^3/uL Absolute Monos (auto) (0.24-0.86) x10^3/uL Absolute Nucleated RBC (0.00-0.012) x10^3u/L Lymphocytes % (19.3-51.7) % Monocytes % (4.7-12.5) % Eosinophils % (0.7-5.8) % Basophils % (0.1-1.2) % Absolute Granulocytes (1.56-6.13) x10^3/uL Basophils # (0.01-0.08) x10^3/uL Sodium (135-145) mmol/L Potassium (3.5-5.1) mmol/L Chloride (98-107) mmol/L Carbon Dioxide (22-30) mmol/L Anion Gap (5-15) MEQ/L BUN (7-17) mg/dL Creatinine (0.52-1.04) mg/dL Estimated GFR ML/MIN Glucose (74-106) mg/dL Lactic Acid 0.9 (0.4-2.0) Calcium (8.4-10.2) mg/dL Total Bilirubin (0.2-1.3) mg/dL AST (14-36) U/L ALT (0-35) U/L Alkaline Phosphatase (38-126) U/L Ammonia < 9 L (9-30) umol/L Serum Total Protein (6.3-8.2) g/dL Albumin (3.5-5.0) g/dL Lipase (23-300) U/L - Radiology Exams Ordered Rad Exams-Entire Visit: Radiology Procedures Category Date Time Status ABDOMEN AND PELVIS W CONTRAST [CT] Stat Exams 12/02/24 14:45 Completed US ABDOMEN LIMITED [ABDOMINAL-LIMITED] [US] Routine Exams 12/03/24 16:25 Taken Discharge Exam General Appearance: no apparent distress, alert Neurologic Exam: alert, oriented x 3, cooperative, normal mood/affect, nml cerebellar function, sensation nml, No motor deficits Eye Exam: PERRL, EOMI, eyes nml inspection, other (jaundice eyes) Ears, Nose, Throat Exam: normal ENT inspection, pharynx normal, moist mucous membranes Neck Exam: normal inspection, non-tender, supple, full range of motion Respiratory Exam: normal breath sounds, lungs clear, No respiratory distress Cardiovascular Exam: regular rate/rhythm, normal heart sounds Gastrointestinal/Abdomen Exam: soft, tenderness, distention, No mass Pelvic Exam: deferred Rectal Exam: deferred Back Exam: normal inspection, normal range of motion, No CVA tenderness, No vertebral tenderness Extremity Exam: normal inspection, normal range of motion Skin Exam: normal color, warm, dry Final Diagnosis/Problem List - Final Discharge Diagnosis/Problem (1) Liver failure Current Visit: Yes Status: Acute (2) Transaminitis Current Visit: Yes Status: Acute Code(s): R74.01 - ELEVATION OF LEVELS OF LIVER TRANSAMINASE LEVELS (3) Hyperbilirubinemia Current Visit: Yes Status: Acute Code(s): E80.6 - OTHER DISORDERS OF BILIRUBIN METABOLISM (4) S/P TKR (total knee replacement) Current Visit: Yes Status: Acute Code(s): Z96.659 - PRESENCE OF UNSPECIFIED ARTIFICIAL KNEE JOINT (5) HTN (hypertension) Current Visit: Yes Status: Chronic Code(s): I10 - ESSENTIAL (PRIMARY) HYPERTENSION (6) Morbid obesity with BMI of 50.0-59.9, adult Current Visit: Yes Status: Chronic Code(s): E66.01 - MORBID (SEVERE) OBESITY DUE TO EXCESS CALORIES; Z68.43 - BODY MASS INDEX [BMI] 50.0-59.9, ADULT (7) GERD (gastroesophageal reflux disease) Current Visit: Yes Status: Chronic Code(s): K21.9 - GASTRO-ESOPHAGEAL REFLUX DISEASE WITHOUT ESOPHAGITIS (8) Type II diabetes mellitus Current Visit: Yes Status: Chronic Assessment & Plan: (1) Liver failure Current Visit: Yes Status: Acute Assessment & Plan: - CBC, CMP reviewed - + Jaundice- eyes - ammonia level stat - pending tx to higher level of care - Hepatitis panel pending - Zofran PRN N/V - Morphine for pain (2) Transaminitis Current Visit: Yes Status: Acute Assessment & Plan: - AST 156, ALT 135 - US Abd - Hepatitis panel Code(s): R74.01 - ELEVATION OF LEVELS OF LIVER TRANSAMINASE LEVELS (3) Hyperbilirubinemia Current Visit: Yes Status: Acute Assessment & Plan: - Bili 4.80- improving - see above plan Code(s): E80.6 - OTHER DISORDERS OF BILIRUBIN METABOLISM (4) S/P TKR (total knee replacement) Current Visit: Yes Status: Acute Qualifiers: Laterality: left Qualified Code(s): Z96.652 - Presence of left artificial knee joint Assessment & Plan: - Pt had surgery on 11/05/[address] Hammond in [place] - Has been using norco for pain OP. - Sutures in place Code(s): Z96.659 - PRESENCE OF UNSPECIFIED ARTIFICIAL KNEE JOINT (5) HTN (hypertension) Current Visit: Yes Status: Chronic Assessment & Plan: - resume home meds Code(s): I10 - ESSENTIAL (PRIMARY) HYPERTENSION (6) Morbid obesity with BMI of 50.0-59.9, adult Current Visit: Yes Status: Chronic Assessment & Plan: - advised diet and exercise control Code(s): E66.01 - MORBID (SEVERE) OBESITY DUE TO EXCESS CALORIES; Z68.43 - BODY MASS INDEX [BMI] 50.0-59.9, ADULT (7) GERD (gastroesophageal reflux disease) Current Visit: Yes Status: Chronic Assessment & Plan: - continue protonix Code(s): K21.9 - GASTRO-ESOPHAGEAL REFLUX DISEASE WITHOUT ESOPHAGITIS (8) Type II diabetes mellitus Current Visit: Yes Status: Chronic Assessment & Plan: - currently not taking any home meds - accuchecks ac/hs, Humalog s/s - carb controlled diet - A1C pending - Discharge Discharge Date: 12/03/24 Disposition: DC TO OTHER HOSP Condition: Stable Prescriptions: Continue hydroCHLOROthiazide [Hydrochlorothiazide] 25 mg PO DAILY allopurinoL [Allopurinol] 1 tab PO BID Omeprazole 40 mg PO DAILY Gabapentin 100 mg PO TID Duloxetine HCl 60 mg PO DAILY Cetirizine HCl 10 mg PO DAILY ARIPiprazole [Aripiprazole] 2 mg PO DAILY Hydrocodone/Acetaminophen [Hydrocodone-Acetamin 10-325 mg] 1 tab PO Q4-6HPRN PRN PRN Reason: pain Non-Formulary Drug [Non-Formulary Item] 1 tab PO DAILY Non-Formulary Drug [Non-Formulary Item] 1 tab PO DAILY Vitamin E (Dl,Tocopheryl Acet) [Vitamin E] 1 tab PO DAILY Potassium Gluconate [Potassium] 1 tab PO DAILY Multivitamin 1 tab PO DAILY Aspirin EC 81 mg [Ecotrin 81 mg] 1 tab PO DAILY Atorvastatin Calcium 20 mg PO DAILY Losartan Potassium 50 mg [Cozaar 50 MG] 50 mg PO DAILY Famotidine 20 mg [Pepcid 20 MG] 40 mg PO HS Metoprolol Succinate 50 mg [Toprol Xl 50 MG] 50 mg PO DAILY Docusate Sodium 100 mg [Docusate Sodium 100 MG] 1 tab PO BID Insulin Aspart (Niacinamide) [Fiasp 100 Unit/ml Flextouch] 25 units SQ TID Insulin Degludec [Tresiba Flextouch U-200] 62 units SQ DAILY Follow up with: TITO BREWSTER NP [Primary Care Provider] -
[2024-12-03 20:36] VITALS: BP 120/61; PULSE 105; TEMP 98.5; O2SAT 95
[2024-12-03] MEDS: MORPHINE SULFATE 2 MG INJ IV PRN (20:57)
[2024-12-03] MEDS: Zofran 4 MG/2 ML VIAL IV PRN (20:58)
--- NOTE | 2024-12-04 08:18 | XRAY ---
Indication: Elevated liver function test. Cholecystectomy. Two-dimensional right upper quadrant abdominal sonogram performed. Comparison: None Pancreas not well-seen due to overlying bowel gas/patient body habitus. Visualized liver demonstrates mild diffuse fatty echogenicity without focal solid/cystic mass. No hepatomegaly or ascites. Gallbladder surgically absent. Common bile duct measures 6.9 mm. No intrahepatic biliary distention. Right kidney measures 10.8 x 5.0 x 4.3 cm with 4.1 cm upper pole exophytic cyst. No solid renal mass or hydronephrosis. Impression: Nonvisualization pancreas. Fatty liver and right renal cyst. Remaining right upper quadrant sonogram is negative.
[2024-12-05 09:07] LABS: HBsAg Screen Negative (Negative); HCV Ab Non Reactive (Non Reactive); Hep B Core Ab, IgM Negative (Negative)
[2024-12-05 09:59] LABS: Hep A Ab, IgM Negative (Negative)
== END 2024-12-03 21:45 ==
LOC: ED 14:22 → MED SURG 12-03 16:12
PROVIDERS: ADMIT Internal Medicine; ATTEND Internal Medicine
DX: K72.90 Hepatic failure, unspecified without coma (principal); R74.01 Elevation of levels of liver transaminase levels; E80.6 Other disorders of bilirubin metabolism; I10 Essential (primary) hypertension; E66.01 Morbid (severe) obesity due to excess calories; Z68.43 Body mass index [BMI] 50.0-59.9, adult; K21.9 Gastro-esophageal reflux disease without esophagitis; E11.9 Type 2 diabetes mellitus without complications; Z96.652 Presence of left artificial knee joint; Z79.899 Other long term (current) drug therapy
CPT/HCPCS: 36415; 74177; 76705; 80053; 80074; 81001; 82140; 83036; 83605; 83690; 84484; 85025; 85610; 93268; 96374; 96375; 96376; 99285; G0378; Q3014; J2270; J2405